=== PATIENT | male | born 1955 | race Caucasian/White ===

== ENCOUNTER 2018-08-14 10:50 | Emergency (ER) ==
[2018-08-14 10:57] VITALS: BP 122/79; TEMP 98.1; BMI 23.0
--- NOTE | 2018-08-14 11:23 | ED.PDOC ---
General ED Provider: Dr. NICK OLIVIER Chief Complaint: Bite Stated Complaint: Patient is a 63 year old male who was bite by and unprovoked dog today on the right ring finger. sustained 2 small puncture wounds. Pain he states is minimal. Animal control in room talking to the Patient Time Seen by Physician: 11:20 Mode of Arrival: Walk-In Information Source: Patient Exam Limitations: No limitations Primary Care Provider: MARKIE SEGOVIA Nursing and Triage Documentation Reviewed and Agree: Yes Does patient meet sepsis criteria?: No System Inflammatory Response Syndrome: Not Applicable Sepsis Protocol: For patient's 13 years and over: Temp is 96.8 and below OR 101 and greater Pulse >90 BPM Resp >20/minute Acutely Altered Mental Status Are patient's symptoms suggestive of a new infection, such as: -Pneumonia -Skin, Soft Tissue -Endocarditis -UTI -Bone, Joint Infection -Implantable Device -Acute Abdominal Infection -Wound Infection -Meningitis -Blood Stream Catheter Infection -Unknown Skin Complaint Exam - Skin/Soft Tissue Complaint/Exam Onset/Duration: 1 hours ago Symptoms Are: Still present Timing: Constant Initial Severity: Severe Current Severity: Mild Location: Right ring finger. Character: Reports: Painful Aggravating: Reports: Touch Alleviating: Reports: None Associated Signs and Symptoms: Reports: Tenderness (mild ) Recent Exposure to Others w/Similar Symptoms: No Skin Findings: Present: Other (puncture wound distal 3rd digit measuring 2 mm and 1 mm. No bleeding is noted at this times.) Joint Tenderness Present: No Differential Diagnoses: Infection Review of Systems - Review Of Systems Constitutional: Reports: No symptoms Eyes: Reports: No symptoms Ears, Nose, Mouth, Throat: Reports: No symptoms Respiratory: Reports: No symptoms Cardiac: Reports: No symptoms GI: Reports: No symptoms : Reports: No symptoms Musculoskeletal: Reports: No symptoms Skin: Reports: Other (puncture wound dog bite ) Neurological: Reports: No symptoms Endocrine: Reports: No symptoms Hematologic/Lymphatic: Reports: No symptoms All Other Systems: Reviewed and Negative Past Medical History - Past Medical History Previously Healthy: Yes Endocrine: Reports: None Cardiovascular: Reports: Hypertension Respiratory: Reports: None Hematological: Reports: None Gastrointestinal: Reports: GERD Genitourinary: Reports: None Neuro/Psych: Reports: None Musculoskeletal: Reports: None Cancer: Reports: None - Surgical History General Surgical History: Reports: Appendectomy - Family History Family History: Reports: None - Social History Smoking Status: Never smoker Hx Substance Use: No Alcohol Screening: None - Immunizations Tetanus Shot up to Date: Yes (2012) Physical Exam - Physical Exam Appearance: Well-appearing, Well-nourished Pain Distress: Mild Eyes: Conjunctiva clear ENT: Nose normal, Oropharynx normal Respiratory: Airway patent, Breath sounds clear, Breath sounds equal, Respirations nonlabored Cardiovascular: RRR, Pulses normal, No rub, No murmur Musculoskeletal: Normal strength, ROM intact, No edema, No calf tenderness Skin: Warm, Dry Neurological: Sensation intact, Motor intact, Cranial nerves intact, Alert, Oriented Psychiatric: Affect appropriate, Mood appropriate Critical Care Note - Critical Care Note Total Time (mins): 0 Course - Course Vital Signs: Temp Pulse Resp BP Pulse Ox 08/14/18 10:52 98.1 F 72 16 122/79 96 Departure - Departure Time of Disposition: 11:31 Disposition: HOME SELF-CARE Discharge Problem: Puncture wound of finger of right hand Qualifiers: Encounter type: initial encounter Qualified Code(s): S61.239A - Puncture wound without foreign body of unspecified finger without damage to nail, initial encounter Dog bite of finger Qualifiers: Encounter type: initial encounter Qualified Code(s): S61.259A - Open bite of unspecified finger without damage to nail, initial encounter; W54.0XXA - Bitten by dog, initial encounter Instructions: Animal Bite (ED) Condition: Stable Pt referred to PMD for follow-up: Yes IPMP verified?: No Additional Instructions: Take medications as prescribed Follow up with PCP in 3 days Take over the counter medications as needed for pain Prescriptions: Clindamycin HCl 300 mg PO TID #30 capsule Allergies/Adverse Reactions: Allergies Penicillins Adverse Reaction (Verified 08/14/18 10:59) Home Medications: Ambulatory Orders Clindamycin HCl 300 mg PO TID #30 capsule 08/14/18 Lisinopril [Zestril] 5 mg PO DAILY 08/14/18 Disposition Discussed With: Patient
== END 2018-08-14 11:35 | disposition home or self-care (01) ==
LOC: ED 10:50
DX: S61.254A Open bite of right ring finger without damage to nail, initial encounter (principal); W54.0XXA Bitten by dog, initial encounter
CPT/HCPCS: 99282